=== PATIENT | male | born 1970 | race Caucasian/White ===

== ENCOUNTER → 2021-03-14 10:54 | Outpatient (CLI) | payer MEDICARE, OTHER, SELFPAY ==
[2021-03-14 14:41] LABS: COVID19 -Nasal RAPID Negative (Negative)
== END ==
PROVIDERS: Visit Provider Physician Assistant
DX: Z01.812 Encounter for preprocedural laboratory examination (principal); Z20.822 Contact with and (suspected) exposure to COVID-19
CPT/HCPCS: 87635

== ENCOUNTER 2021-03-16 08:35 | Day surgery (SDC) | payer OTHER, SELFPAY ==
[2021-03-16 09:30] VITALS: BP 127/80; PULSE 66; RESP 15; TEMP 36.6; O2SAT 98; BMI 28.3
--- NOTE | 2021-03-16 09:38 | PM.HP.1 ---
History of Present Illness History of Present Illness Date Patient Seen: 03/16/21 Chief complaint: DX COLONOSCOPY Narrative: History of tubular adenomas Patient History Medical History Acute rheumatoid arthritis Admission for reversal of vasectomy Bulging of cervical intervertebral disc Bursitis Carpal tunnel syndrome Degeneration, intervertebral disc, lumbar GERD (gastroesophageal reflux disease) Hammer toes of both feet Hiatal hernia Migraines Osteoarthritis Peroneal nerve injury Pes cavus Plantar fasciitis, bilateral Post-laminectomy syndrome PTSD (post-traumatic stress disorder) Sleep apnea Thoracic outlet syndrome Tinnitus TMJ arthritis Surgical History H/O discectomy H/O vasectomy History of uvulopalatopharyngoplasty Hx of hemorrhoidectomy Family & Social History Social History: household members children Tobacco & Substance use: Smoking Status Never smoker alcohol intake frequency holiday/special occasion Substance Use Type does not use Meds Home Medications and Allergies Home Medications Medication Instructions Recorded Confirmed Type Ambien 10 mg PO PRN PRN 03/16/21 03/16/21 History Butrans 10 mcg TOPICAL WEEKLY 03/16/21 03/16/21 History Dexlilant 60 mg PO DAILY 03/16/21 03/16/21 History Librax (with clidinium) 5 mg PO DAILY 03/16/21 03/16/21 History gabapentin 300 mg PO BID 03/16/21 03/16/21 History tramadol 50 mg PO PRN PRN 03/16/21 03/16/21 History Allergies Allergy/AdvReac Type Severity Reaction Status Date / Time No Known Drug Allergies Allergy Verified 03/16/21 09:20 Exam Vital Signs (past 8 hours): - 03/16/21 09:30 Temperature 97.9 F Pulse Rate 66 Respiratory Rate 15 Blood Pressure 127/80 Pulse Oximetry 98 Oxygen Delivery Method Room Air Narrative Exam Narrative: Oropharynx free of lesions Chest clear to auscultation percussion Cardiac exam reveals no S3 or murmur Assessment & Plan Assessment & Plan narrative: History of tubular adenomas need for follow-up colonoscopy. Risks, benefits, alternatives have been explained. Time Spent With Patient Critical Care time: I spent a total of [] minutes of critical care time on this patient's care today; this time is exclusive of procedural time.
[2021-03-16] MEDS: SODIUM CHLORIDE 0.9% 1,000 ML 84 ML IV (09:39)
--- NOTE | 2021-03-16 09:39 | PM.OP.COLON ---
Operative Date/Time/Diagnoses Date of procedure: 03/16/21 Pre-op diagnosis: See indication and findings Procedure & Clinicians Study performed: Colonoscopy Indications: History of polyps Surgeon: Ashish Law Procedure Notes Procedure in detail: After informed consent was obtained the patient was placed in left lateral decubitus position. Video colonoscope was introduced the rectum slowly advanced cecum. On slow withdrawal mucosa was carefully examined. The scope was removed. The patient tolerated procedure well. Blood loss none Complications none Sedation MAC Findings 1. Mild left-sided diverticulosis 2. Otherwise negative colonoscopy to cecum With a negative colonoscopy at this point just Mr. Green revert to a 7 year follow-up for his next colonoscopy
[2021-03-16 10:03] VITALS: BP 129/78; PULSE 69; RESP 16; TEMP 37; O2SAT 99
[2021-03-16 10:08] VITALS: BP 127/81; PULSE 64; RESP 18; O2SAT 98
[2021-03-16 10:13] VITALS: BP 119/82; PULSE 98; RESP 12; O2SAT 95
[2021-03-16 10:30] VITALS: BP 119/82; PULSE 69; RESP 18; TEMP 36.9; O2SAT 99
--- NOTE | 2021-03-16 10:42 | SUR.PHASEII ---
Addendum entered by Lucero Chan R.N. 03/16/21 11:50: 1130-states ride on way. taking fluids well. 1135- patients ride arrived and discharged per criteria with all belongings to car via wheel chair. no changes in status. Original Note: Pacu discharge-1045- Patient met criteria. vss. no complaints of pain, but states -when asked is at 7/10 but ok cause it is at his baseline. Wearing pain patch and took pain med pre hospital. home care instructions reviewed with patient, and given copies to patient.iv out, dressed self. Has all personal belongings. Sitting up in chair awaiting ride home.
== END 2021-03-16 11:35 | disposition home or self-care (01) ==
PROVIDERS: PCP Nurse Practitioner Acute Care; Referring Provider Internal Medicine Gastroenterology; Visit Provider Internal Medicine Gastroenterology
PROC: 0DJD8ZZ Inspection of Lower Intestinal Tract, Via Natural or Artificial Opening Endoscopic (ICD-10-PCS; CPT 45378; principal; 2021-03-16 10:00)
DX: Z12.11 Encounter for screening for malignant neoplasm of colon (principal); Z86.010 Personal history of colon polyps; G47.30 Sleep apnea, unspecified; K58.9 Irritable bowel syndrome, unspecified; F43.10 Post-traumatic stress disorder, unspecified; K57.30 Diverticulosis of large intestine without perforation or abscess without bleeding
CPT/HCPCS: 45378; J2704